=== PATIENT | female | born 1955 | race Caucasian/White ===

== ENCOUNTER 2017-10-23 05:28 | Day surgery (SDC) | END 2017-10-23 06:00 | disposition home or self-care (01) ==

== ENCOUNTER 2017-11-03 05:41 | Day surgery (SDC) | END 2017-11-03 11:41 | disposition home or self-care (01) ==

== ENCOUNTER 2017-12-13 05:34 | Inpatient (IN) | END 2017-12-17 12:47 | disposition home or self-care (01) | DRG 221 ==

== ENCOUNTER 2018-03-12 09:36 | Day surgery (SDC) | END 2018-03-12 13:04 | disposition home or self-care (01) ==

== ENCOUNTER 2018-05-30 08:33 | Day surgery (SDC) | END 2018-05-30 11:03 | disposition home or self-care (01) ==